=== PATIENT | male | born 1985 | race Caucasian/White ===

== ENCOUNTER 2021-04-20 01:57 | Inpatient (IN) | payer MEDICARE, MEDICAID ==
[2021-04-20] MEDS ORDERED: Lorazepam 2 MG/ML VIAL ONE (02:34)
[2021-04-20 03:15] LABS: ALT (SGPT) 60 U/L (8-55); AST (SGOT) 144 U/L (5-34); Albumin 4.5 g/dL (3.5-5.0); Alcohol 79 mg/dL (Less than 10); Alkaline Phosphatase 190 U/L (40-110); Anion Gap 18 mmol/L (10-20); BUN (Urea Nitrogen) 5 mg/dL (8.9-20.6); Bilirubin, Total 2.6 mg/dL (0.2-1.2); CK (CPK) 186 U/L (30-200); Calc. Creatinine Clearance 0 mL/min (70-130); Calcium 9.2 mg/dL (7.8-10.44); Carbon Dioxide 24 mmol/L (22-29); Chloride 102 mmol/L (98-107); Globulin 3.1 g/dL (2.4-3.5); Glucose 129 mg/dL (70-105); Magnesium 1.5 mg/dL (1.6-2.6); Potassium 3.4 mmol/L (3.5-5.1); Protein, Total 7.6 g/dL (6.0-8.3); Sodium 141 mmol/L (136-145)
[2021-04-20 03:38] LABS: CKMB 3.6 ng/mL (0-6.6)
[2021-04-20] MEDS ORDERED: Aspirin 325 MG TAB ONE (03:47)
[2021-04-20] MEDS ORDERED: Magnesium 2 GM/50 ML BAG (IN WATER) ONE (03:48)
[2021-04-20 03:51] LABS: #Basophils 0.1 10x3/uL (0.0-0.2); #Monocytes 0.5 10x3/uL (0.0-1.1); #Neutrophils 4.5 10x3/uL (1.5-8.4); %Basophils 1.2 % (0.0-2.0); %Lymphocytes 14.8 % (18.0-47.0); %Monocytes 8.2 % (0.0-10.0); %Neutrophils 75.3 % (40.0-75.0); Hemoglobin 16.8 g/dL (13.5-17.5); Mean Corpuscular HGB CONC 39.3 g/dL (32.0-36.0); Mean Corpuscular Hemoglobin 36.9 pg (27.0-33.0); Mean Corpuscular Volume 94.1 fl (81.2-95.1); Mean Platelet Volume 11.8 fl (7.4-10.4); Platelet Count 43 10x3/uL (150-450); RBC Distribution Width 11.2 % (11.5-14.5); Red Blood Cell (RBC) Count 4.55 10x6/uL (4.32-5.72)
[2021-04-20 04:29] LABS: Acetaminophen Less than 6.0 mcg/mL (10.0-30.0)
[2021-04-20 05:10] LABS: Platelet Morphology Comment Appears Decreased; Small Platelets SLIGHT
[2021-04-20 05:11] LABS: RBC Morphology Normal
[2021-04-20] MEDS ORDERED: Multivitamins, Adult 10 ML, Folic Acid 1 MG in Dextrose 5 %-0.45 % NaCl 1,000 ML IV SCH (06:00)
[2021-04-20] MEDS ORDERED: Thiamine HCl 200 MG/2 ML VIAL SLOW IVP SCH (06:00)
[2021-04-20 06:43] LABS: Bilirubin Neg (Negative); Blood, Urine Negative (Negative); Clarity Clear (Clear); Glucose, Urine (Dipstick) Normal (Negative); Ketone, Urine Negative (Negative); Leukocyte Negative (Negative); Nitrite Negative (Negative); Protein, Urine (Dipstick) 15 mg/dl (Neg-Trace); pH, Urine 6.5 (5.0-9.0)
[2021-04-20 07:04] LABS: SARS-CoV-2 NAA Rapid Test Not Detected (NotDetected)
[2021-04-20 08:20] LABS: INR-International Normal Ratio 1.2; Prothrombin Time 13.6 sec (9.5-12.1)
[2021-04-20 08:23] LABS: Bilirubin, Direct 1.2 mg/dL (0.1-0.3)
[2021-04-20] MEDS ORDERED: Lorazepam 1 MG TAB PO PRN (08:58)
[2021-04-20] MEDS ORDERED: Lorazepam 2 MG/ML VIAL IM PRN (08:58)
[2021-04-20] MEDS ORDERED: Electrolyte Replacement Protocol 1 EACH FS SCH (09:00)
[2021-04-20 10:18] LABS: Magnesium 1.8 mg/dL (1.6-2.6); Phosphorus 3.2 mg/dL (2.3-4.7)
[2021-04-20 10:36] LABS: Syphilis Antibody Nonreactive (Nonreactive); Syphilis Antibody Index 0.05 S/CO (<1.00 Non-Reactive)
[2021-04-20 10:40] LABS: CKMB 2.6 ng/mL (0-6.6)
[2021-04-20 12:22] VITALS: BMI 27.8
[2021-04-20] MEDS ORDERED: Pantoprazole 40 MG VIAL IVP SCH (12:30)
[2021-04-20 12:31] LABS: HBSAg Index 0.22 S/CO (0-0.99); Hep B Surf Ag NonReactive S/CO (NonReactive)
[2021-04-20] MEDS ORDERED: Magnesium 2 GM/50 ML 2 GM in Premix Bag 1 BAG IVPB SCH (12:45)
[2021-04-20] MEDS ORDERED: Potassium Chloride 20 MEQ TAB PO SCH (12:45)
[2021-04-20] MEDS: Multivit, Therapeutic 1 TAB PO SCH (13:42)
[2021-04-20] MEDS: Lorazepam 1 MG TAB PO SCH ×3 (13:47→20:21)
[2021-04-20] MEDS ORDERED: Lorazepam 1 MG TAB ONE (13:49)
[2021-04-20] MEDS ORDERED: Ondansetron PF 4 MG/2 ML Vial ONE (13:53)
[2021-04-20] MEDS: Ondansetron PF 4 MG/2 ML Vial IVP PRN ×2 (13:57→20:32)
[2021-04-20 14:40] LABS: Hep C IgG Ab Non-Reactive (NonReactive); Hep C Index 0.55 S/CO (0-0.79)
[2021-04-20 14:42] LABS: Hep A IgM AB Non-Reactive (NonReactive); Hep A IgM S/CO 0.11 S/CO (0-0.79)
[2021-04-20 15:28] LABS: HBCM Index 0.07 S/CO (0-0.79); Hepatitis B Core IgM Abs Non-Reactive (NonReactive)
[2021-04-20] MEDS: Sodium Chloride 0.9% 1,000 ML IV SCH ×2 (19:58→20:21)
[2021-04-20] MEDS: Folic Acid 1 MG TAB PO SCH (19:58)
[2021-04-21] MEDS: Lorazepam 1 MG TAB PO SCH ×4 (04:41→21:35)
[2021-04-21] MEDS: Ondansetron ODT 4 MG TAB PO PRN ×2 (04:44→21:36)
[2021-04-21] MEDS: Sodium Chloride 0.9% 1,000 ML IV SCH ×2 (05:45→16:22)
[2021-04-21 05:46] LABS: ALT (SGPT) 51 U/L (8-55); AST (SGOT) 110 U/L (5-34); Albumin 4.3 g/dL (3.5-5.0); Alkaline Phosphatase 170 U/L (40-110); Anion Gap 15 mmol/L (10-20); BUN (Urea Nitrogen) 8 mg/dL (8.9-20.6); Bilirubin, Total 3.7 mg/dL (0.2-1.2); Calc. Creatinine Clearance 162 mL/min (70-130); Calcium 9.2 mg/dL (7.8-10.44); Carbon Dioxide 24 mmol/L (22-29); Chloride 105 mmol/L (98-107); Globulin 2.8 g/dL (2.4-3.5); Glucose 93 mg/dL (70-105); Magnesium 1.9 mg/dL (1.6-2.6); Potassium 3.8 mmol/L (3.5-5.1); Protein, Total 7.1 g/dL (6.0-8.3); Sodium 140 mmol/L (136-145)
[2021-04-21] MEDS ORDERED: Magnesium 2 GM/50 ML 2 GM in Premix Bag 1 BAG IVPB SCH (06:00)
[2021-04-21 06:12] LABS: #Basophils 0.1 10x3/uL (0.0-0.2); #Monocytes 0.4 10x3/uL (0.0-1.1); #Neutrophils 4.4 10x3/uL (1.5-8.4); %Basophils 1.2 % (0.0-2.0); %Lymphocytes 14.8 % (18.0-47.0); %Monocytes 6.8 % (0.0-10.0); %Neutrophils 76.9 % (40.0-75.0); Hemoglobin 15.2 g/dL (13.5-17.5); Mean Corpuscular HGB CONC 35.8 g/dL (32.0-36.0); Mean Corpuscular Hemoglobin 35.3 pg (27.0-33.0); Mean Corpuscular Volume 98.4 fl (81.2-95.1); Mean Platelet Volume 10.2 fl (7.4-10.4); Platelet Count 35 10x3/uL (150-450); RBC Distribution Width 10.9 % (11.5-14.5); Red Blood Cell (RBC) Count 4.31 10x6/uL (4.32-5.72); White Blood Cell (WBC) Count 5.7 10x3/uL (3.5-10.5)
[2021-04-21] MEDS: Lorazepam 1 MG TAB PO PRN ×2 (08:59→16:22)
[2021-04-21] MEDS: Multivit, Therapeutic 1 TAB PO SCH (08:59)
[2021-04-21] MEDS: Folic Acid 1 MG TAB PO SCH (09:00)
[2021-04-21] MEDS: Pantoprazole 40 MG VIAL IVP SCH (09:00)
[2021-04-21] MEDS: Ondansetron PF 4 MG/2 ML Vial IVP PRN ×2 (09:04→16:08)
[2021-04-21 15:00] LABS: Amphetamine Not Detected (NotDetected); Barbiturates Screen Not Detected (NotDetected); Benzodiazepine Screen Not Detected (NotDetected); Cocaine Metabolite Screen Not Detected (NotDetected); Methadone Not Detected (NotDetected); Methamphetamine Not Detected (NotDetected); Opiate Screen Not Detected (NotDetected); Oxycodone Screen Not Detected (NotDetected); Phencyclidine (PCP) Not Detected (NotDetected); THC/Cannabinoid Screen Not Detected (NotDetected); Tricyclic Screen Not Detected (NotDetected)
[2021-04-22] MEDS: Lorazepam 1 MG TAB PO SCH (03:11)
[2021-04-22] MEDS: Sodium Chloride 0.9% 1,000 ML IV SCH ×2 (05:21→11:52)
[2021-04-22 06:59] LABS: #Basophils 0.1 10x3/uL (0.0-0.2); #Monocytes 0.4 10x3/uL (0.0-1.1); %Basophils 1.2 % (0.0-2.0); %Lymphocytes 23.2 % (18.0-47.0); %Monocytes 9.5 % (0.0-10.0); Hemoglobin 13.8 g/dL (13.5-17.5); Mean Corpuscular HGB CONC 37.1 g/dL (32.0-36.0); Mean Corpuscular Hemoglobin 36.6 pg (27.0-33.0); Mean Corpuscular Volume 98.7 fl (81.2-95.1); Mean Platelet Volume 10.9 fl (7.4-10.4); Platelet Count 34 10x3/uL (150-450); RBC Distribution Width 10.9 % (11.5-14.5); Red Blood Cell (RBC) Count 3.77 10x6/uL (4.32-5.72); White Blood Cell (WBC) Count 4.2 10x3/uL (3.5-10.5)
[2021-04-22 07:02] LABS: ALT (SGPT) 42 U/L (8-55); AST (SGOT) 78 U/L (5-34); Albumin 3.9 g/dL (3.5-5.0); Alkaline Phosphatase 140 U/L (40-110); Anion Gap 13 mmol/L (10-20); BUN (Urea Nitrogen) 10 mg/dL (8.9-20.6); Bilirubin, Total 2.7 mg/dL (0.2-1.2); Calc. Creatinine Clearance 160 mL/min (70-130); Calcium 8.5 mg/dL (7.8-10.44); Carbon Dioxide 25 mmol/L (22-29); Chloride 104 mmol/L (98-107); Globulin 2.7 g/dL (2.4-3.5); Glucose 100 mg/dL (70-105); Potassium 4.1 mmol/L (3.5-5.1); Protein, Total 6.6 g/dL (6.0-8.3); Sodium 138 mmol/L (136-145)
[2021-04-22 07:03] LABS: #Neutrophils 2.8 10x3/uL (1.5-8.4); %Neutrophils 66.1 % (40.0-75.0)
[2021-04-22] MEDS ORDERED: Lorazepam 1 MG TAB PO PRN (08:59)
[2021-04-22] MEDS: Lorazepam 0.5 MG TAB PO SCH ×3 (11:07→21:35)
[2021-04-22] MEDS: Multivit, Therapeutic 1 TAB PO SCH (11:07)
[2021-04-22] MEDS: Folic Acid 1 MG TAB PO SCH (11:07)
[2021-04-22] MEDS: Ondansetron PF 4 MG/2 ML Vial IVP PRN ×3 (11:08→21:35)
[2021-04-22] MEDS: Pantoprazole 40 MG VIAL IVP SCH (11:08)
[2021-04-22] MEDS: Nicotine 21 MG PATCH TD SCH (16:22)
[2021-04-23] MEDS: Sodium Chloride 0.9% 1,000 ML IV SCH ×2 (01:08→05:45)
[2021-04-23] MEDS: Acetaminophen 325 MG TAB PO PRN ×2 (01:09→10:08)
[2021-04-23] MEDS: Ondansetron ODT 4 MG TAB PO PRN (01:09)
[2021-04-23 05:21] LABS: ALT (SGPT) 44 U/L (8-55); AST (SGOT) 75 U/L (5-34); Alkaline Phosphatase 142 U/L (40-110); Anion Gap 13 mmol/L (10-20); Bilirubin, Total 2.3 mg/dL (0.2-1.2); Calc. Creatinine Clearance 175 mL/min (70-130); Calcium 8.8 mg/dL (7.8-10.44); Carbon Dioxide 27 mmol/L (22-29); Chloride 103 mmol/L (98-107); Globulin 2.5 g/dL (2.4-3.5); Glucose 120 mg/dL (70-105); Protein, Total 6.5 g/dL (6.0-8.3); Sodium 139 mmol/L (136-145)
[2021-04-23 05:30] LABS: #Basophils 0.1 10x3/uL (0.0-0.2); #Monocytes 0.5 10x3/uL (0.0-1.1); #Neutrophils 2.9 10x3/uL (1.5-8.4); %Basophils 1.1 % (0.0-2.0); %Lymphocytes 21.6 % (18.0-47.0); %Neutrophils 66.1 % (40.0-75.0); Hemoglobin 13.4 g/dL (13.5-17.5); Mean Corpuscular HGB CONC 35.4 g/dL (32.0-36.0); Mean Platelet Volume 10.3 fl (7.4-10.4); Platelet Count 41 10x3/uL (150-450); RBC Distribution Width 10.9 % (11.5-14.5); Red Blood Cell (RBC) Count 3.83 10x6/uL (4.32-5.72); White Blood Cell (WBC) Count 4.4 10x3/uL (3.5-10.5)
[2021-04-23 05:38] LABS: BUN (Urea Nitrogen) 9 mg/dL (8.9-20.6)
[2021-04-23] MEDS: Lorazepam 0.5 MG TAB PO SCH (07:28)
[2021-04-23] MEDS: Ondansetron PF 4 MG/2 ML Vial IVP PRN ×3 (07:34→20:41)
[2021-04-23] MEDS ORDERED: Lorazepam 0.5 MG TAB PO PRN (08:59)
[2021-04-23] MEDS: Multivit, Therapeutic 1 TAB PO SCH (09:54)
[2021-04-23] MEDS: Folic Acid 1 MG TAB PO SCH (09:54)
[2021-04-23] MEDS: Thiamine 100 MG TAB PO SCH (09:54)
[2021-04-23] MEDS: Pantoprazole 40 MG VIAL IVP SCH (09:54)
[2021-04-23] MEDS ORDERED: Gabapentin 100 MG CAP PO SCH (12:00)
[2021-04-23] MEDS: chlordiazePOXIDE HCl 5 MG CAP PO SCH ×2 (16:00→20:39)
[2021-04-23] MEDS: Lorazepam 2 MG/ML VIAL SLOW IVP PRN ×2 (16:01→21:28)
[2021-04-23] MEDS: Nicotine 21 MG PATCH TD SCH (20:38)
[2021-04-23] MEDS: Gabapentin 100 MG CAP PO SCH (20:39)
[2021-04-24] MEDS: Lorazepam 2 MG/ML VIAL SLOW IVP PRN (04:46)
[2021-04-24 05:13] LABS: ALT (SGPT) 47 U/L (8-55); AST (SGOT) 70 U/L (5-34); Albumin 4.1 g/dL (3.5-5.0); Alkaline Phosphatase 146 U/L (40-110); Anion Gap 12 mmol/L (10-20); BUN (Urea Nitrogen) 8 mg/dL (8.9-20.6); Bilirubin, Total 2.4 mg/dL (0.2-1.2); Calc. Creatinine Clearance 160 mL/min (70-130); Calcium 9.3 mg/dL (7.8-10.44); Carbon Dioxide 29 mmol/L (22-29); Chloride 102 mmol/L (98-107); Globulin 2.9 g/dL (2.4-3.5); Glucose 99 mg/dL (70-105); Potassium 4.3 mmol/L (3.5-5.1); Sodium 139 mmol/L (136-145)
[2021-04-24 05:19] LABS: #Basophils 0.1 10x3/uL (0.0-0.2); #Monocytes 0.5 10x3/uL (0.0-1.1); #Neutrophils 2.7 10x3/uL (1.5-8.4); %Basophils 1.4 % (0.0-2.0); %Lymphocytes 24.9 % (18.0-47.0); %Monocytes 11.8 % (0.0-10.0); %Neutrophils 61.7 % (40.0-75.0); Hemoglobin 14.2 g/dL (13.5-17.5); Mean Corpuscular HGB CONC 36.1 g/dL (32.0-36.0); Mean Corpuscular Hemoglobin 35.4 pg (27.0-33.0); Mean Platelet Volume 10.3 fl (7.4-10.4); Platelet Count 57 10x3/uL (150-450); RBC Distribution Width 11.2 % (11.5-14.5); Red Blood Cell (RBC) Count 4.01 10x6/uL (4.32-5.72); White Blood Cell (WBC) Count 4.4 10x3/uL (3.5-10.5)
[2021-04-24] MEDS: chlordiazePOXIDE HCl 5 MG CAP PO SCH (08:25)
[2021-04-24] MEDS: Ondansetron PF 4 MG/2 ML Vial IVP PRN (08:25)
[2021-04-24] MEDS: Pantoprazole 40 MG VIAL IVP SCH (08:25)
[2021-04-24] MEDS: Gabapentin 100 MG CAP PO SCH (08:26)
[2021-04-24] MEDS: Folic Acid 1 MG TAB PO SCH (08:26)
[2021-04-24] MEDS: Multivit, Therapeutic 1 TAB PO SCH (08:26)
[2021-04-24] MEDS: Thiamine 100 MG TAB PO SCH (08:26)
[2021-04-24 15:29] VITALS: BP 135/84; TEMP 100
== END 2021-04-24 12:20 | disposition home or self-care (01) | DRG 897 ==
LOC: CSHERS 01:57 → CSHERHOLD 12:16 → CSHTELE 18:20
PROVIDERS: ADMIT Family Medicine; ATTEND Family Medicine
PROC: HZ2ZZZZ Detoxification Services for Substance Abuse Treatment (ICD-10-PCS; principal; 2021-04-20)
DX: F10.239 Alcohol dependence with withdrawal, unspecified (principal); Z20.822 Contact with and (suspected) exposure to COVID-19; R79.89 Other specified abnormal findings of blood chemistry; R07.9 Chest pain, unspecified; G62.9 Polyneuropathy, unspecified; K70.10 Alcoholic hepatitis without ascites; D69.6 Thrombocytopenia, unspecified; K64.9 Unspecified hemorrhoids; F41.0 Panic disorder [episodic paroxysmal anxiety]; E83.42 Hypomagnesemia; I45.10 Unspecified right bundle-branch block; Z87.891 Personal history of nicotine dependence; Z79.899 Other long term (current) drug therapy; Z87.01 Personal history of pneumonia (recurrent)
CPT/HCPCS: 36415; 71045; 71275; 76705; 80053; 80074; 80143; 80306; 80307; 81003; 82247; 82550; 82553; 82607; 82746; 83690; 83735; 84100; 84443; 84484; 85025; 85610; 85730; 86780; 93005; 93306; 94760; 96365; 96366; 96367; 96375; 96376; C9113; J2060; J2405; J3411; J3475; J7042; J7050; Q0162; U0002

== ENCOUNTER 2024-04-16 17:15 | Inpatient (IN) | payer BC, MEDICAID, MEDICARE, OTHER ==
[~2024-04-16 17:15] MED LIST: Iopamidol 300 61% 100 ML VIAL FS ONE
[2024-04-16] MEDS ORDERED: Diazepam 10 MG/2 ML SYRINGE ONE ×2 (17:39→18:12)
[2024-04-16 18:11] LABS: Troponin I Less than 0.010 ng/mL (< 0.028)
[2024-04-16 18:28] LABS: #Basophils 0.02 10x3/uL (0.0-0.2); #Monocytes 0.36 10x3/uL (0.0-1.1); #Neutrophils 1.92 10x3/uL (1.5-8.4); %Basophils 0.7 % (0.0-2.0); %Lymphocytes 17.4 % (18.0-47.0); %Monocytes 12.8 % (0.0-10.0); %Neutrophils 68.4 % (40.0-75.0); Hematocrit 36.2 % (38.8-50.0); Hemoglobin 14.7 g/dL (13.5-17.5); Mean Corpuscular HGB CONC 40.6 g/dL (32.0-36.0); Mean Corpuscular Hemoglobin 35.4 pg (27.0-33.0); Mean Corpuscular Volume 87.2 fL (81.2-95.1); Mean Platelet Volume 10.8 fL (7.4-10.4); Platelet Count 51 10x3/uL (150-450); RBC Distribution Width 12.9 % (11.5-14.5); Red Blood Cell (RBC) Count 4.15 10x6/uL (4.32-5.72); White Blood Cell (WBC) Count 2.8 10x3/uL (3.5-10.5)
[2024-04-16 18:43] LABS: ALT (SGPT) 69 U/L (8-55); AST (SGOT) 92 U/L (5-34); Albumin 4.2 g/dL (3.5-5.0); Alkaline Phosphatase 157 U/L (40-110); Anion Gap 16 mmol/L (10-20); BUN (Urea Nitrogen) 6 mg/dL (8.9-20.6); Calc. Creatinine Clearance 0 mL/min (70-130); Calcium 8.8 mg/dL (7.8-10.44); Carbon Dioxide 24 mmol/L (22-29); Chloride 104 mmol/L (98-107); Estimated GFR 115; Globulin 2.6 g/dL (2.4-3.5); Glucose 102 mg/dL (70-105); Potassium 4.3 mmol/L (3.5-5.1); Protein, Total 6.8 g/dL (6.0-8.3); Sodium 140 mmol/L (136-145)
[2024-04-16] MEDS ORDERED: LevoFLOXacin 750 mg/D5W 150 ml Premix Bag ONE (19:02)
[2024-04-16 19:11] LABS: Platelet Adequacy Comment Platelets Decreased; RBC Morph Comment Within Normal Limits
[2024-04-16] MEDS ORDERED: Ondansetron ODT 4 MG TAB PO PRN ×2 (19:12→19:17)
[2024-04-16] MEDS ORDERED: Electrolyte Replacement Protocol 1 EACH FS SCH (19:15)
[2024-04-16] MEDS ORDERED: Acetaminophen 650 MG Suppository PR PRN (19:17)
[2024-04-16 19:42] LABS: Magnesium 1.6 mg/dL (1.6-2.6); Phosphorus 2.6 mg/dL (2.3-4.7)
[2024-04-16] MEDS ORDERED: Ipratropium/Albuterol 3 ML NEB NEB PRN (19:50)
[2024-04-16] MEDS: FLU (Fluarix Triv) TS24-25(6MOS UP)/PF 45 MCG/0.5 ML Syringe IM ONE (20:46)
[2024-04-16] MEDS: Multivitamins, Adult 10 ML, Thiamine HCl 100 MG, Folic Acid 1 MG in Dextrose 5 %-0.45 %... IV SCH (20:46)
[2024-04-16] MEDS ORDERED: Magnesium 2 GM/50 ML BAG (IN WATER) ONE (21:10)
[2024-04-16] MEDS ORDERED: Ondansetron PF 4 MG/2 ML Vial ONE (21:12)
[2024-04-16] MEDS: Ondansetron PF 4 MG/2 ML Vial IVP PRN (21:30)
[2024-04-16] MEDS: Magnesium 2 GM/50 ML(in water) 2 GM in Premix 1 BAG IVPB SCH (21:30)
[2024-04-17 03:38] LABS: #Basophils 0.03 10x3/uL (0.0-0.2); #Eosinophils 0.05 10x3/uL (0.0-0.5); #Monocytes 0.47 10x3/uL (0.0-1.1); #Neutrophils 1.67 10x3/uL (1.5-8.4); %Eosinophils 1.6 % (0.0-6.0); %Lymphocytes 28.5 % (18.0-47.0); %Monocytes 15.1 % (0.0-10.0); %Neutrophils 53.5 % (40.0-75.0); Hematocrit 34.8 % (38.8-50.0); Mean Corpuscular HGB CONC 37.4 g/dL (32.0-36.0); Mean Corpuscular Hemoglobin 33.5 pg (27.0-33.0); Mean Corpuscular Volume 89.7 fL (81.2-95.1); Mean Platelet Volume 10.1 fL (7.4-10.4); Platelet Count 38 10x3/uL (150-450); RBC Distribution Width 12.8 % (11.5-14.5); Red Blood Cell (RBC) Count 3.88 10x6/uL (4.32-5.72); White Blood Cell (WBC) Count 3.1 10x3/uL (3.5-10.5)
[2024-04-17 03:45] LABS: ALT (SGPT) 59 U/L (8-55); AST (SGOT) 75 U/L (5-34); Albumin 3.8 g/dL (3.5-5.0); Alkaline Phosphatase 143 U/L (40-110); Anion Gap 15 mmol/L (10-20); BUN (Urea Nitrogen) 7 mg/dL (8.9-20.6); Bilirubin, Total 1.2 mg/dL (0.2-1.2); Calc. Creatinine Clearance 143 mL/min (70-130); Calcium 8.5 mg/dL (7.8-10.44); Carbon Dioxide 25 mmol/L (22-29); Chloride 101 mmol/L (98-107); Estimated GFR 115; Globulin 2.8 g/dL (2.4-3.5); Glucose 91 mg/dL (70-105); Protein, Total 6.6 g/dL (6.0-8.3); Sodium 137 mmol/L (136-145)
[2024-04-17] MEDS ORDERED: LevoFLOXacin 750 MG TAB ONE (05:29)
[2024-04-17] MEDS: LevoFLOXacin 750 MG TAB PO SCH (05:38)
[2024-04-17] MEDS ORDERED: Enoxaparin 40 MG (0.4 mL) SYRINGE ONE (08:07)
[2024-04-17] MEDS ORDERED: Thiamine HCl 200 MG/2 ML VIAL ONE (08:07)
[2024-04-17] MEDS ORDERED: Folic Acid 1 MG TAB ONE (08:08)
[2024-04-17] MEDS ORDERED: Amlodipine 5 MG TAB ONE (08:08)
[2024-04-17] MEDS ORDERED: Lorazepam 1 MG TAB ONE ×2 (08:09→18:04)
[2024-04-17] MEDS: Multivit, Therapeutic 1 TAB PO SCH (08:20)
[2024-04-17] MEDS: Thiamine HCl 200 MG/2 ML VIAL SLOW IVP SCH (08:20)
[2024-04-17] MEDS: Folic Acid 1 MG TAB PO SCH (08:20)
[2024-04-17] MEDS: Amlodipine 5 MG TAB PO SCH (08:20)
[2024-04-17] MEDS: Lorazepam 1 MG TAB PO PRN (08:21)
[2024-04-17] MEDS: Enoxaparin 40 MG (0.4 mL) SYRINGE SC SCH (08:35)
[2024-04-17 09:36] LABS: Amphetamine Not Detected (NotDetected); Barbiturates Screen Not Detected (NotDetected); Benzodiazepine Screen Detected (NotDetected); Cocaine Metabolite Screen Not Detected (NotDetected); Methadone Not Detected (NotDetected); Methamphetamine Not Detected (NotDetected); Opiate Screen Not Detected (NotDetected); Oxycodone Screen Not Detected (NotDetected); Phencyclidine (PCP) Not Detected (NotDetected); THC/Cannabinoid Screen Not Detected (NotDetected); Tricyclic Screen Not Detected (NotDetected)
[2024-04-17] MEDS ORDERED: Acetaminophen 325 MG TAB ONE (13:32)
[2024-04-17] MEDS: Acetaminophen 325 MG TAB PO PRN (13:40)
[2024-04-17] MEDS: Lorazepam 2 MG/ML VIAL IM PRN (21:29)
[2024-04-18] MEDS: Lorazepam 1 MG TAB PO PRN (05:10)
[2024-04-18 11:18] LABS: #Basophils 0.02 10x3/uL (0.0-0.2); #Eosinophils 0.09 10x3/uL (0.0-0.5); #Monocytes 0.26 10x3/uL (0.0-1.1); #Neutrophils 1.34 10x3/uL (1.5-8.4); %Basophils 0.8 % (0.0-2.0); %Eosinophils 3.6 % (0.0-6.0); %Lymphocytes 30.6 % (18.0-47.0); %Monocytes 10.5 % (0.0-10.0); %Neutrophils 54.1 % (40.0-75.0); Hematocrit 37.4 % (38.8-50.0); Hemoglobin 13.9 g/dL (13.5-17.5); Mean Corpuscular HGB CONC 37.2 g/dL (32.0-36.0); Mean Corpuscular Hemoglobin 33.3 pg (27.0-33.0); Mean Corpuscular Volume 89.7 fL (81.2-95.1); Mean Platelet Volume 11.4 fL (7.4-10.4); Platelet Count 38 10x3/uL (150-450); RBC Distribution Width 12.8 % (11.5-14.5); Red Blood Cell (RBC) Count 4.17 10x6/uL (4.32-5.72); White Blood Cell (WBC) Count 2.5 10x3/uL (3.5-10.5)
[2024-04-18 11:25] LABS: INR-International Normal Ratio 1.3; PTT 55.5 sec (22.0-33.0); Prothrombin Time 13.5 sec (9.5-12.1)
[2024-04-18 11:29] LABS: ALT (SGPT) 79 U/L (8-55); AST (SGOT) 88 U/L (5-34); Alkaline Phosphatase 145 U/L (40-110); Anion Gap 15 mmol/L (10-20); BUN (Urea Nitrogen) 9 mg/dL (8.9-20.6); Bilirubin, Total 1.1 mg/dL (0.2-1.2); Calc. Creatinine Clearance 142 mL/min (70-130); Carbon Dioxide 24 mmol/L (22-29); Chloride 104 mmol/L (98-107); Estimated GFR 115; Globulin 2.7 g/dL (2.4-3.5); Glucose 125 mg/dL (70-105); Magnesium 1.8 mg/dL (1.6-2.6); Potassium 4.5 mmol/L (3.5-5.1); Protein, Total 6.7 g/dL (6.0-8.3); Sodium 138 mmol/L (136-145)
[2024-04-18] MEDS: Escitalopram Oxalate 10 mg Tablet PO SCH (11:44)
[2024-04-18 11:45] LABS: Phosphorus 3.9 mg/dL (2.3-4.7)
[2024-04-18] MEDS: Magnesium 2 GM/50 ML(in water) 2 GM in Premix 1 BAG IVPB SCH (14:44)
[2024-04-18 16:49] VITALS: BP 125/75; TEMP 98.2
[2024-04-18] MEDS ORDERED: Lorazepam 1 MG TAB PO PRN (19:12)
[2024-04-18] MEDS ORDERED: pyridOXINE 50 MG (B6) TAB PO SCH (21:00)
[2024-04-18] MEDS ORDERED: Cholecalciferol 1,000 UNITS (25 MCG) TAB PO SCH (21:00)
[2024-04-18] MEDS ORDERED: Lorazepam 1 MG TAB PO SCH (21:00)
[2024-04-18] MEDS ORDERED: Cyanocobalamin (Vitamin B-12) 1,000 MCG TAB PO SCH (21:00)
[2024-04-19] MEDS ORDERED: Metoprolol Succinate XL 25 MG ER.TAB PO SCH (09:00)
[2024-04-19] MEDS ORDERED: Escitalopram Oxalate 10 mg Tablet PO SCH (09:00)
[2024-04-19] MEDS ORDERED: Lorazepam 0.5 MG TAB PO PRN (19:12)
[2024-04-20] MEDS ORDERED: Thiamine 100 MG TAB PO SCH (09:00)
== END 2024-04-18 17:55 | disposition home or self-care (01) | DRG 896 ==
LOC: CSHERS 17:15 → SUATTDRO 17:15 → CSHERHOLD 19:17 → CSHTELE 04-17 19:00
PROVIDERS: ADMIT Family Medicine; ATTEND Internal Medicine
PROC: HZ2ZZZZ Detoxification Services for Substance Abuse Treatment (ICD-10-PCS; principal; 2024-04-16)
DX: F10.239 Alcohol dependence with withdrawal, unspecified (principal); J15.69 Pneumonia due to other Gram-negative bacteria; J90 Pleural effusion, not elsewhere classified; D68.9 Coagulation defect, unspecified; I10 Essential (primary) hypertension; K74.60 Unspecified cirrhosis of liver; E86.0 Dehydration; D69.6 Thrombocytopenia, unspecified; F41.9 Anxiety disorder, unspecified; E83.42 Hypomagnesemia
CPT/HCPCS: 36415; 71045; 71260; 80053; 80306; 83735; 84100; 84145; 84484; 85025; 85610; 85730; 93005; 94760; 96365; 96366; 96375; J1650; J1956; J2060; J2405; J3360; J3411; J3475; J7042; Q9967